=== PATIENT | male | born 1945 | race Caucasian/White ===

== ENCOUNTER 2021-12-19 07:53 | Oncology outpatient (recurring) (ONCR) | payer MEDICARE, SELFPAY ==
[2021-12-19 09:34] LABS: Basophils % 0.5 %; Eosinophils # 0.2 10^3/uL (0.0-0.8); Hematocrit 42.2 % (42.0-52.0); Hemoglobin 14.3 g/dL (11.7-16.6); Lymphocytes # 2.1 10^3/uL (0.8-4.8); Mean Corpuscular HGB Conc 33.9 g/dL (30.0-36.0); Mean Corpuscular Hemoglobin 32.6 pg (28.0-34.0); Mean Corpuscular Volume 96.3 fl (80-94); Mean Platelet Volume 10.6 fL (7.4-10.4); Monocytes % 12.5 %; Neutrophils # 4.28 10^3/uL (1.8-7.7); Nucleated Red Blood Cells % 0 %; Platelet Count 289 10^3/cmm (130-400); Red Blood Count 4.38 10^6/uL (4.1-5.3); Red Cell Distribution Width 14.1 % (12.1-15.1); White Blood Count 7.7 10^3/uL (4.0-10.0)
[2021-12-19 09:51] LABS: Carcinoembryonic Antigen 1.7 ng/mL (0.0-4.7)
[2021-12-19 10:02] LABS: Alanine Aminotransferase 11 U/L (0-41); Albumin Level 4.2 g/dL (3.5-5.2); Alkaline Phosphatase 92 IU/L (40-130); Anion Gap 15.7 (5-19); Aspartate Amino Transferase 16 U/L (0-40); Blood Urea Nitrogen 19 mg/dL (8-23); Calcium 9.4 mg/dL (8.5-10.5); Carbon Dioxide 27 mmol/L (22-29); Chloride 97 mmol/L (98-107); Globulin 2.4 g/dL (1.3-4.6); Glucose 99 mg/dL (65-115); Osmolality Calculated 282 mOsm/kg (285-295); Potassium 4.7 mmol/L (3.5-5.1); Sodium 135 mmol/L (136-145); Total Bilirubin 0.2 mg/dL (0.15-1.2); Total Protein 6.6 g/dL (6.6-8.7)
== END 2021-12-23 23:59 | disposition home or self-care (01) ==
PROVIDERS: PCP Family Medicine; Visit Provider Internal Medicine Medical Oncology
DX: C18.6 Malignant neoplasm of descending colon (principal)
CPT/HCPCS: 80053; 82378; 85025

== ENCOUNTER 2022-07-17 13:29 | Oncology outpatient (recurring) (ONCR) | payer MEDICARE, MEDICAID, SELFPAY ==
[2022-07-17 14:31] LABS: Basophils # 0.1 10^3/uL (0.0-0.1); Basophils % 0.6 %; Eosinophils # 0.4 10^3/uL (0.0-0.8); Eosinophils % 3.6 %; Hematocrit 47.6 % (42.0-52.0); Hemoglobin 15.6 g/dL (11.7-16.6); Lymphocytes # 2.4 10^3/uL (0.8-4.8); Lymphocytes % 23.3 %; Mean Corpuscular HGB Conc 32.8 g/dL (30.0-36.0); Mean Corpuscular Hemoglobin 32.9 pg (28.0-34.0); Mean Corpuscular Volume 100.4 fl (80-94); Mean Platelet Volume 10.8 fL (7.4-10.4); Monocytes # 1.1 10^3/uL (0.2-0.9); Monocytes % 11.1 %; Neutrophils # 6.22 10^3/uL (1.8-7.7); Neutrophils % 60.8 %; Nucleated Red Blood Cells % 0 %; Platelet Count 242 10^3/cmm (130-400); Red Blood Count 4.74 10^6/uL (4.1-5.3); Red Cell Distribution Width 13.3 % (12.1-15.1); White Blood Count 10.2 10^3/uL (4.0-10.0)
[2022-07-17 15:07] LABS: Alanine Aminotransferase 15 U/L (0-41); Albumin Level 4.2 g/dL (3.5-5.2); Alkaline Phosphatase 86 U/L (40-130); Blood Urea Nitrogen 21 mg/dL (8-23); Calcium 9.3 mg/dL (8.5-10.5); Carbon Dioxide 29 mmol/L (22-29); Chloride 101 mmol/L (98-107); Globulin 2.6 g/dL (1.3-4.6); Glucose 98 mg/dL (65-115); Osmolality Calculated 291 mOsm/kg (285-295); Sodium 139 mmol/L (136-145); Total Bilirubin 0.3 mg/dL (0.15-1.2); Total Protein 6.8 g/dL (6.6-8.7)
[2022-07-17 17:20] LABS: Anion Gap 13.8 (5-19); Aspartate Amino Transferase 18 U/L (0-40); Potassium 4.8 mmol/L (3.5-5.1)
== END 2022-07-23 23:59 | disposition home or self-care (01) ==
PROVIDERS: PCP Family Medicine; Visit Provider Internal Medicine Medical Oncology
DX: C18.6 Malignant neoplasm of descending colon (principal); Z90.49 Acquired absence of other specified parts of digestive tract; F17.210 Nicotine dependence, cigarettes, uncomplicated
CPT/HCPCS: 36415; 80053; 82378; 85025; 99214

== ENCOUNTER → 2022-08-07 13:50 | Outpatient (BNVA) | payer MEDICARE, MEDICAID, SELFPAY | PROVIDERS: PCP Family Medicine; Referring Provider Nurse Practitioner Family; Visit Provider Surgery | DX: Z85.038 Personal history of other malignant neoplasm of large intestine (principal) | CPT/HCPCS: 99203 ==

== ENCOUNTER 2022-09-12 08:22 | Day surgery (SDC) | payer MEDICARE, SELFPAY ==
[2022-09-10 11:27] VITALS: BMI 25.0
[2022-09-12 09:00] VITALS: BP 130/80; PULSE 78; RESP 18; TEMP 36.1; O2SAT 98
[2022-09-12] MEDS: sodium chloride 0.9% 1,000 ML 30 ML IV (09:16)
--- NOTE | 2022-09-12 09:48 | ANES.PREANE2 ---
Pre-Anesthetic Assessment Height/Weight: Height 1.83 m Weight 83.915 kg Temp Pulse Resp BP Pulse Ox O2 Del Method 97 F L 78 18 130/80 98 Room Air 09/12/22 09:00 09/12/22 09:00 09/12/22 09:00 09/12/22 09:00 09/12/22 09:00 09/12/22 09:00 Preop Diagnosis: screening Operation Date: 09/12/22 10:00 Proposed Procedures p colon 19315 ,Z12.11,C18.6(Not Applicable) - Stalin Salter DO Familial anesthetic complications: none Was Beta Rajinder taken within 24 hours: Yes Was Clonidine taken within 24 hours: N/A Last intake: Intake Last Liquid Date 09/11/22 Last Liquid Time 20:00 Last Solid Date 09/11/22 Last Solid Time 05:00 Last Intake: 20:00 Social Tobacco and No alcohol 1ppd pack(s) per day 40+ pack years Exam alert, oriented x 3, clear to auscultation bilaterally and regular rate & rhythm Airway Submandibular: within normal limits Cervical ROM: within normal limits Mallampati: Class II Dentition: false (upper, 4 teeth on bottom) Pulmonary Chronic Obstructive Pulmonary Disease, Exertional Dyspnea and Shortness of Breath CV/HEM Coronary Artery Disease, Hypertension and Myocardial Infarction (PTCA 2018. Pt walks 1 mile 2-3 times a week) None reported Hepatic None reported GI None reported Metabolic None reported Musc/skel Lower Back Pain and Osteoarthritis/DJD Neuropsych None reported Anesthetic Plan ASA status: 3 Anesthesia: MAC Medications/Allergies Home Medications Medication Instructions Recorded Confirmed Last Taken Type aspirin 81 mg capsule 81 mg PO DAILY 12/19/21 09/10/22 09/10/22 History clopidogrel 75 mg tablet 75 mg PO DAILY 12/19/21 09/10/22 09/07/22 History diltiazem HCl 240 mg 240 mg PO DAILY 12/19/21 09/12/22 09/12/22 History capsule,extended release 24 hr furosemide 20 mg tablet 20 mg PO DAILY 12/19/21 09/12/22 09/12/22 History lisinopril 10 mg tablet 10 mg PO DAILY 12/19/21 09/12/22 09/12/22 History metoprolol tartrate 25 mg tablet 25 mg PO DAILY 12/19/21 09/12/22 09/12/22 History hydrocortisone 2.5 % topical cream 1 applic GA QID 10 days #30 grams 09/12/22 Unknown Rx with perineal applicator ([facility]) Allergies Allergy/AdvReac Type Severity Reaction Status Date / Time Penicillins Allergy ALGY-Hives Verified 08/07/22 14:18 Sulfa (Sulfonamide Allergy hives Verified 08/07/22 14:18 Antibiotics) Current Medications Generic Name Dose Route Start Last Admin Trade Name Freq PRN Reason Stop Dose Admin Sodium Chloride 1,000 mls @ 30 mls/hr 09/12/22 09:00 09/12/22 09:16 Sodium Chloride 0.9% IV 09/13/22 08:59 30 mls/hr .Q24H MINDY Administration PFSH Anesthesia Medical History Benign prostatic hyperplasia Colon cancer Coronary artery disease Elevated PSA Hyperlipidemia Hypertension Mini stroke Peripheral arterial disease Surgical History History of cholecystectomy History of coronary artery stent placement x 2 History of partial surgical removal of colon (11/06/21) Open left hemicolectomy at [facility] History of tonsillectomy Age 17 S/P arterial stent Left leg Family History Mother Cancer Colon Other CAD (coronary artery disease) Hypertension Denies family history of Diabetes Clotting disorder Dementia Hyperlipidemia Psychiatric illness Chronic kidney disease (CKD) Suicide Anesthesia complication Bleeding disorder Lung disease Stroke Social History Smoking and tobacco status: current every day smoker (1 ppd) Alcohol intake: never Data Anesthesia Cardiac Studies: No Data to Display
--- NOTE | 2022-09-12 10:21 | PM.HP ---
Providers/Chief Complaint Primary Care Provider: Ramonita Batres DO Chief Complaint: History of colon cancer History of Present Illness Cleopatra Bowers is a 76 year old male here for a screening colonoscopy Medications/Allergies Home Medications Medication Instructions Recorded Confirmed Last Taken Type aspirin 81 mg capsule 81 mg PO DAILY 12/19/21 09/10/22 09/10/22 History clopidogrel 75 mg tablet 75 mg PO DAILY 12/19/21 09/10/22 09/07/22 History diltiazem HCl 240 mg 240 mg PO DAILY 12/19/21 09/12/22 09/12/22 History capsule,extended release 24 hr furosemide 20 mg tablet 20 mg PO DAILY 12/19/21 09/12/22 09/12/22 History lisinopril 10 mg tablet 10 mg PO DAILY 12/19/21 09/12/22 09/12/22 History metoprolol tartrate 25 mg tablet 25 mg PO DAILY 12/19/21 09/12/22 09/12/22 History Allergies Allergy/AdvReac Type Severity Reaction Status Date / Time Penicillins Allergy ALGY-Hives Verified 08/07/22 14:18 Sulfa (Sulfonamide Allergy hives Verified 08/07/22 14:18 Antibiotics) PFSH Acute PFSH: Medical History Benign prostatic hyperplasia Colon cancer Coronary artery disease Elevated PSA Hyperlipidemia Hypertension Mini stroke Peripheral arterial disease Surgical History History of cholecystectomy History of coronary artery stent placement x 2 History of partial surgical removal of colon (11/06/21) Open left hemicolectomy at [facility] History of tonsillectomy Age 17 S/P arterial stent Left leg Family History Mother Cancer Colon Other CAD (coronary artery disease) Hypertension Denies family history of Diabetes Clotting disorder Dementia Hyperlipidemia Psychiatric illness Chronic kidney disease (CKD) Suicide Anesthesia complication Bleeding disorder Lung disease Stroke Social History Smoking and tobacco status: current every day smoker (1 ppd) Alcohol intake: never Vitals/I&O/Wt Last Vital Signs Temp 97 F L 09/12/22 09:00 Pulse 78 09/12/22 09:00 Resp 18 09/12/22 09:00 BP 130/80 09/12/22 09:00 Pulse Ox 98 09/12/22 09:00 O2 Del Method Room Air 09/12/22 09:00 Weight last 48 hrs Weight 185 lb A&P Assessment and plan (1) Colon cancer screening: Plan Colonoscopy The risks and benefits of the procedure, including bleeding, infection, intestinal perforation requiring surgery, missed lesion were explained to the patient. The patient is understanding of the risks and wishes to proceed. Attestations Medical Necessity Statement*: Home Coding Level of Care Code Acute Code for Chg Fwd Diagnoses Colon cancer screening Z12.11
[2022-09-12 10:46] VITALS: BP 106/59; PULSE 62; RESP 16; TEMP 36.1; O2SAT 98
[2022-09-12 10:55] VITALS: BP 105/75; PULSE 70; RESP 16; O2SAT 97
[2022-09-12 11:00] VITALS: BP 117/64; PULSE 70; RESP 18; O2SAT 97
--- NOTE | 2022-09-12 14:18 | ANE.PACU2 ---
Inpatient post-anesthesia follow up: Airway intact: Yes Vital signs: Temperature 97.0 F Pulse Rate 70 Respiratory Rate 18 Blood Pressure 117/64 Pulse Oximetry 97 Oxygen Delivery Me thod Room Air Oxygen Flow Rate Fraction of Inspir ed Oxygen Hydration adequate: Yes Nausea and vomiting: No Pain level: 2 Mental status: Baseline
== END 2022-09-12 11:25 | disposition home or self-care (01) ==
PROVIDERS: PCP Family Medicine; Visit Provider Surgery
PROC: 0DJD8ZZ Inspection of Lower Intestinal Tract, Via Natural or Artificial Opening Endoscopic (ICD-10-PCS; CPT 45378; principal; 2022-09-12 10:00)
DX: Z85.038 Personal history of other malignant neoplasm of large intestine (principal); Z86.010 Personal history of colon polyps; K62.1 Rectal polyp; I25.10 Atherosclerotic heart disease of native coronary artery without angina pectoris; E78.5 Hyperlipidemia, unspecified; I10 Essential (primary) hypertension; I73.9 Peripheral vascular disease, unspecified; F17.210 Nicotine dependence, cigarettes, uncomplicated; J44.9 Chronic obstructive pulmonary disease, unspecified; Z79.02 Long term (current) use of antithrombotics/antiplatelets; Z12.11 Encounter for screening for malignant neoplasm of colon; D12.7 Benign neoplasm of rectosigmoid junction; D12.0 Benign neoplasm of cecum; Z79.82 Long term (current) use of aspirin
CPT/HCPCS: 45385; 88305; J2704; J7030

== ENCOUNTER → 2022-09-26 15:49 | Outpatient (BNVA) | payer MEDICARE, SELFPAY | PROVIDERS: PCP Family Medicine; Visit Provider Surgery | DX: D12.6 Benign neoplasm of colon, unspecified (principal) | CPT/HCPCS: 99024; 99212 ==

== ENCOUNTER → 2022-09-30 13:33 | Outpatient (BNVA) | payer MEDICARE, SELFPAY | PROVIDERS: PCP Family Medicine; Referring Provider Nurse Practitioner Family; Visit Provider Dermatology | DX: L57.0 Actinic keratosis (principal); Z85.828 Personal history of other malignant neoplasm of skin; L82.1 Other seborrheic keratosis; L81.4 Other melanin hyperpigmentation; L57.8 Other skin changes due to chronic exposure to nonionizing radiation | CPT/HCPCS: 17000; 17003; 99203 ==

== ENCOUNTER 2023-01-16 12:36 | Oncology outpatient (recurring) (ONCR) | payer MEDICARE, SELFPAY ==
[2023-01-16 12:44] VITALS: BP 114/70; PULSE 66; RESP 18; TEMP 37; O2SAT 96
[2023-01-16 13:00] LABS: Basophils # 0.1 10^3/uL (0.0-0.1); Basophils % 0.6 %; Eosinophils # 0.3 10^3/uL (0.0-0.8); Eosinophils % 3.4 %; Hematocrit 44.4 % (37-53); Lymphocytes # 2.3 10^3/uL (0.8-4.8); Lymphocytes % 24.7 %; Mean Corpuscular HGB Conc 33.3 g/dL (30-55); Mean Corpuscular Hemoglobin 32.5 pg (27-33); Mean Corpuscular Volume 97.4 fl (82-101); Mean Platelet Volume 10.5 fL (7.4-10.4); Monocytes # 1.1 10^3/uL (0.2-0.9); Monocytes % 11.7 %; Neutrophils # 5.49 10^3/uL (1.8-7.7); Neutrophils % 58.7 %; Nucleated Red Blood Cells % 0 %; Platelet Count 251 10^3/cmm (157-399); Red Blood Count 4.56 10^6/uL (3.85-5.65); Red Cell Distribution Width 13.1 % (12.1-15.1); White Blood Count 9.35 10^3/uL (3.29-11.43)
[2023-01-16 13:25] LABS: Carcinoembryonic Antigen 1.6 ng/mL (0.0-4.7)
[2023-01-16 13:36] LABS: Alanine Aminotransferase 17 U/L (0-41); Albumin Level 4.5 g/dL (3.5-5.2); Alkaline Phosphatase 74 U/L (40-130); Anion Gap 12.4 (5-19); Aspartate Amino Transferase 16 U/L (0-40); Blood Urea Nitrogen 15 mg/dL (8-23); Calcium 9.3 mg/dL (8.5-10.5); Carbon Dioxide 30 mmol/L (22-29); Chloride 98 mmol/L (98-107); Globulin 2.2 g/dL (1.3-4.6); Glucose 103 mg/dL (65-115); Osmolality Calculated 283 mOsm/kg (285-295); Potassium 4.4 mmol/L (3.5-5.1); Sodium 136 mmol/L (136-145); Total Bilirubin 0.3 mg/dL (0.15-1.2); Total Protein 6.7 g/dL (6.6-8.7)
== END 2023-01-23 23:59 | disposition home or self-care (01) ==
PROVIDERS: Nurse Practitioner Family; PCP Family Medicine; Visit Provider Internal Medicine Medical Oncology
DX: C18.6 Malignant neoplasm of descending colon (principal); Z79.899 Other long term (current) drug therapy
CPT/HCPCS: 36415; 80053; 82378; 85025; 99214

== ENCOUNTER → 2023-02-03 13:28 | Outpatient (BNVA) | payer MEDICARE, SELFPAY | PROVIDERS: PCP Family Medicine; Visit Provider Dermatology | DX: L57.0 Actinic keratosis (principal); Z85.828 Personal history of other malignant neoplasm of skin; L82.1 Other seborrheic keratosis; L81.4 Other melanin hyperpigmentation; D18.01 Hemangioma of skin and subcutaneous tissue; L57.8 Other skin changes due to chronic exposure to nonionizing radiation; D48.5 Neoplasm of uncertain behavior of skin; F17.210 Nicotine dependence, cigarettes, uncomplicated | CPT/HCPCS: 11102; 17000; 17003; 99213 ==

== ENCOUNTER → 2023-02-27 08:03 | Outpatient (BNVA) | payer MEDICARE, SELFPAY | PROVIDERS: PCP Family Medicine; Visit Provider Dermatology | DX: C44.311 Basal cell carcinoma of skin of nose (principal) | CPT/HCPCS: 17311 ==

== ENCOUNTER 2023-03-03 08:33 | Outpatient (CLI) | payer MEDICARE, SELFPAY ==
[2023-03-03] MEDS: iohexol 350 mg/mL 500 mL Btl (per mL) PO (09:18)
--- NOTE | 2023-03-03 10:00 | CT_ITS ---
WS: [id number] CT CHEST, ABDOMEN AND PELVIS WITH CONTRAST HISTORY: History of colon cancer s/p hemicolectomy TECHNIQUE: Contiguous 5 mm axial imaging performed through the chest, abdomen and pelvis with IV cont rast, oral contrast has been provided. Coronal and sagittal reformats chest. Coronal and sagittal ref ormats through the abdomen and pelvis. All CT scans at [facility] use at least one of these d ose optimization techniques: automated exposure control; mA and/or kV adjustment per patient size (in cludes targeted exams where dose is matched to clinical indication); or iterative reconstruction. CONTRAST: Omnipaque 350; 100 mL IV. DLP: 986.28 mGy.cm COMPARISON: 11/01/[address]: Benign scattered granulomata. No mass or nodule. No pneumonia. Mild atherosclerosis thoraci c aorta. No aneurysm. Normal sized pulmonary artery. Mediastinal and hilar lymph nodes are similar to the prior study. Some of these lymph nodes contain calcifications. There are no enlarging lymph node s. Heart is normal size. No pericardial or pleural effusions. Abdomen CT: Diffuse mild hepatic steatosis. No metastatic lesions in the liver. Normal portal vein. P rior cholecystectomy. Normal size spleen with granulomata. Normal pancreas. No common bile duct dilat ation. No adrenal mass. Mild atherosclerosis aorta. Calcified plaque and intimal thickening. Heavy ca lcification continues into the iliac arteries. Normal appearance of the stomach. No small bowel obstruction. Tortuous overlapping loops of colon fro m chronic constipation. Prior appendectomy. Sigmoid anastomotic sutures are stable. No recurrent mass and no obstruction. No enlarging or new lymph nodes. Pelvic CT: No free fluid or adenopathy. Prostate gland is enlarged and heterogeneous. Prostate encroa ches into the urinary bladder. Inguinal canals are patent bilaterally containing fat. Increased soft tissue in the RIGHT inguinal canal. May be a small amount of fluid or the testicle. No destructive lytic bone lesions. No sclerotic lesions. Degenerative disc disease at L2-3. Stable sc lerotic focus in the medial LEFT femoral neck. IMPRESSION: 1. No evidence for metastatic disease to the chest, abdomen or pelvis. 2. Sigmoid anastomotic sutures are identified. No mass or obstruction at the surgical site. 3. No ascites or enlarging lymph nodes. 4. Prior cholecystectomy. 5. Enlarged heterogeneous prostate.
[2023-03-03] MEDS: iohexol 350 mg/mL 500 mL Btl (per mL) IV (10:05)
== END 2023-03-03 08:34 | disposition home or self-care (01) ==
PROVIDERS: PCP Family Medicine; Visit Provider Nurse Practitioner Family
DX: C18.6 Malignant neoplasm of descending colon (principal)
CPT/HCPCS: 71260; 74177; Q9967

== ENCOUNTER → 2023-03-06 08:42 | Outpatient (BNVA) | payer MEDICARE, SELFPAY | PROVIDERS: PCP Family Medicine; Visit Provider Dermatology | DX: C44.311 Basal cell carcinoma of skin of nose (principal) | CPT/HCPCS: 99213 ==

== ENCOUNTER 2023-03-19 06:44 | Day surgery (SDC) | payer MEDICARE, SELFPAY ==
[2023-03-19 07:17] VITALS: BP 122/80; PULSE 98; RESP 18; TEMP 36.8; O2SAT 96; BMI 25.7
[2023-03-19] MEDS: sodium chloride 0.9% 1,000 ML 30 ML IV (07:22)
--- NOTE | 2023-03-19 07:59 | ANES.PREANE2 ---
Pre-Anesthetic Assessment Height/Weight: Height 1.83 m Weight 86.183 kg Temp Pulse Resp BP Pulse Ox O2 Del Method 98.3 F 98 18 122/80 96 Room Air 03/19/23 07:17 03/19/23 07:17 03/19/23 07:17 03/19/23 07:17 03/19/23 07:17 03/19/23 07:17 Preop Diagnosis: history of colon polyps Operation Date: 03/19/23 08:15 Proposed Procedures p Colonoscopy 85512,C18.6,D12.6(Not Applicable) - Stalin Salter DO Familial anesthetic complications: none Was Beta Rajinder taken within 24 hours: Yes Was Clonidine taken within 24 hours: N/A Last intake: Intake Last Liquid Date 03/18/23 Last Liquid Time 20:00 Last Solid Date 03/18/23 Last Solid Time 05:00 Social Tobacco 1 pack(s) per day 43 pack years Exam alert, oriented x 3, clear to auscultation bilaterally and regular rate & rhythm Airway Submandibular: within normal limits Cervical ROM: within normal limits Mallampati: Class II Dentition: chipped and other Comments: Comments: 4 teeth on bottom none on top Pulmonary Chronic Obstructive Pulmonary Disease and Exertional Dyspnea CV/HEM Coronary Artery Disease, Hypertension and Myocardial Infarction blood clots stents None reported Hepatic None reported GI None reported Metabolic Hyperlipidemia Musc/skel Osteoarthritis/DJD Neuropsych Transient Ischemic Attack Anesthetic Plan ASA status: 3 Anesthesia: MAC Risk of > 500 ml blood loss (7ml/kg in children): No Medications/Allergies Home Medications Medication Instructions Recorded Confirmed Last Taken Type aspirin 81 mg capsule 81 mg PO DAILY 12/19/21 03/17/23 03/14/23 History clopidogrel 75 mg tablet 75 mg PO DAILY 12/19/21 03/17/23 03/14/23 History diltiazem HCl 240 mg 240 mg PO DAILY 12/19/21 03/17/23 03/19/23 History capsule,extended release 24 hr furosemide 20 mg tablet 20 mg PO DAILY 12/19/21 03/17/23 03/18/23 History lisinopril 10 mg tablet 10 mg PO DAILY 12/19/21 03/17/23 03/18/23 History metoprolol tartrate 25 mg tablet 25 mg PO DAILY 12/19/21 03/17/23 03/19/23 History Prevagen 1 cap PO DAILY 01/16/23 03/17/23 03/18/23 History ascorbate calcium (vitamin C) 500 500 mg PO DAILY 01/16/23 03/17/23 03/18/23 History mg tablet albuterol sulfate 90 mcg/actuation 2 puff inhalation QID PRN 03/17/23 03/17/23 03/16/23 History aerosol inhaler Shortness Of Breath Or Wheezing mupirocin 2 % topical ointment 1 applic topical BID 03/17/23 03/17/23 03/18/23 History Allergies Allergy/AdvReac Type Severity Reaction Status Date / Time Penicillins Allergy ALGY-Hives Verified 02/11/23 11:29 Sulfa (Sulfonamide Allergy hives Verified 02/11/23 11:29 Antibiotics) Current Medications Generic Name Dose Route Start Last Admin Trade Name Freq PRN Reason Stop Dose Admin Sodium Chloride 1,000 mls @ 30 mls/hr 03/19/23 07:00 03/19/23 07:22 Sodium Chloride 0.9% IV 03/20/23 06:59 30 mls/hr .Q24H MINDY Administration PFSH Anesthesia Medical History Benign prostatic hyperplasia Colon cancer Coronary artery disease Elevated PSA Hyperlipidemia Hypertension Mini stroke Peripheral arterial disease Surgical History History of cholecystectomy History of coronary artery stent placement x 2 History of partial surgical removal of colon (11/06/21) Open left hemicolectomy at [facility] History of tonsillectomy Age 17 S/P arterial stent Left leg Family History Mother Cancer Colon Other CAD (coronary artery disease) Hypertension Denies family history of Diabetes Clotting disorder Dementia Hyperlipidemia Psychiatric illness Chronic kidney disease (CKD) Suicide Anesthesia complication Bleeding disorder Lung disease Stroke Social History (System 02/11/23 @ 11:29 by Nargis Alba) Smoking and tobacco/nicotine status: current every day tobacco/nicotine user (1 ppd) cigarettes Packs smoked per day: 0.75 Years cigarettes smoked: 43 Alcohol intake: never Data Anesthesia Cardiac Studies: No Data to Display
--- NOTE | 2023-03-19 08:23 | ECG_ITS ---
[facility] Test Date: 2023-03-19 Pat Name: Cleopatra Bowers Department: Room: Gender: Male [employer]: : 1945 Requested By: Amauri Lai Order Number: [id number] Isaias MD: Aditya Devries M.D. Measurements Intervals [place] Rate: 84 P: 71 MI: 149 QRS: 32 QRSD: 75 T: 65 QT: 348 QTc: 414 Interpretive Statements SINUS RHYTHM Compared to ECG 04/13/2018 20:11:45 Myocardial infarct finding no longer present Electronically Signed On 03-19-2023 8:43:55 CDT by Aditya Devries M.D. [id number]
--- NOTE | 2023-03-19 08:26 | PM.HP ---
Providers/Chief Complaint Primary Care Provider: Ramonita Batres DO Chief Complaint: C18.6, D12.6 History of Present Illness Cleopatra Bowers is a 77 year old male Review of Systems General: Reports: 10 or more systems reviewed and unremarkable except in HPI and below Medications/Allergies Home Medications Medication Instructions Recorded Confirmed Last Taken Type aspirin 81 mg capsule 81 mg PO DAILY 12/19/21 03/17/23 03/14/23 History clopidogrel 75 mg tablet 75 mg PO DAILY 12/19/21 03/17/23 03/14/23 History diltiazem HCl 240 mg 240 mg PO DAILY 12/19/21 03/17/23 03/19/23 History capsule,extended release 24 hr furosemide 20 mg tablet 20 mg PO DAILY 12/19/21 03/17/23 03/18/23 History lisinopril 10 mg tablet 10 mg PO DAILY 12/19/21 03/17/23 03/18/23 History metoprolol tartrate 25 mg tablet 25 mg PO DAILY 12/19/21 03/17/23 03/19/23 History Prevagen 1 cap PO DAILY 01/16/23 03/17/23 03/18/23 History ascorbate calcium (vitamin C) 500 500 mg PO DAILY 01/16/23 03/17/23 03/18/23 History mg tablet albuterol sulfate 90 mcg/actuation 2 puff inhalation QID PRN 03/17/23 03/17/23 03/16/23 History aerosol inhaler Shortness Of Breath Or Wheezing mupirocin 2 % topical ointment 1 applic topical BID 03/17/23 03/17/23 03/18/23 History Allergies Allergy/AdvReac Type Severity Reaction Status Date / Time Penicillins Allergy ALGY-Hives Verified 02/11/23 11:29 Sulfa (Sulfonamide Allergy hives Verified 02/11/23 11:29 Antibiotics) PFSH Acute PFSH: Medical History Benign prostatic hyperplasia Colon cancer Coronary artery disease Elevated PSA Hyperlipidemia Hypertension Mini stroke Peripheral arterial disease Surgical History History of cholecystectomy History of coronary artery stent placement x 2 History of partial surgical removal of colon (11/06/21) Open left hemicolectomy at [facility] History of tonsillectomy Age 17 S/P arterial stent Left leg Family History Mother Cancer Colon Other CAD (coronary artery disease) Hypertension Denies family history of Diabetes Clotting disorder Dementia Hyperlipidemia Psychiatric illness Chronic kidney disease (CKD) Suicide Anesthesia complication Bleeding disorder Lung disease Stroke Social History Smoking and tobacco/nicotine status: current every day tobacco/nicotine user (1 ppd) cigarettes Packs smoked per day: 0.75 Years cigarettes smoked: 43 Alcohol intake: never Vitals/I&O/Wt Last Vital Signs Temp 98.3 F 03/19/23 07:17 Pulse 98 03/19/23 07:17 Resp 18 03/19/23 07:17 BP 122/80 03/19/23 07:17 Pulse Ox 96 03/19/23 07:17 O2 Del Method Room Air 03/19/23 07:17 Weight last 48 hrs Weight 190 lb A&P Assessment and plan (1) Tubulovillous adenoma of colon: Plan colonoscopy The risks and benefits of the procedure, including bleeding, infection, intestinal perforation requiring surgery, missed lesion were explained to the patient. The patient is understanding of the risks and wishes to proceed. Attestations Medical Necessity Statement*: Home Coding Level of Care Code Acute Code for Chg Fwd Diagnoses Tubulovillous adenoma of colon D12.6
[2023-03-19 08:57] VITALS: BP 91/51; PULSE 75; RESP 12; TEMP 36.2; O2SAT 98
[2023-03-19 09:07] VITALS: BP 97/49; PULSE 80; RESP 16; O2SAT 97
[2023-03-19 09:17] VITALS: BP 109/70; PULSE 78; RESP 16; O2SAT 97
--- NOTE | 2023-03-19 13:29 | ANE.PACU2 ---
Inpatient post-anesthesia follow up: Airway intact: Yes Vital signs: Temperature 97.2 F Pulse Rate 78 Respiratory Rate 16 Blood Pressure 109/70 Pulse Oximetry 97 Oxygen Delivery Me thod Room Air Oxygen Flow Rate 2 Fraction of Inspir ed Oxygen Hydration adequate: Yes Nausea and vomiting: No Pain level: 2 Mental status: Baseline
== END 2023-03-19 09:37 | disposition home or self-care (01) ==
PROVIDERS: PCP Family Medicine; Visit Provider Surgery
PROC: 0DJD8ZZ Inspection of Lower Intestinal Tract, Via Natural or Artificial Opening Endoscopic (ICD-10-PCS; CPT 45378; principal; 2023-03-19 08:15)
DX: C18.6 Malignant neoplasm of descending colon (principal); K64.8 Other hemorrhoids; D12.5 Benign neoplasm of sigmoid colon; Z79.82 Long term (current) use of aspirin; N40.0 Benign prostatic hyperplasia without lower urinary tract symptoms; E78.5 Hyperlipidemia, unspecified; I25.10 Atherosclerotic heart disease of native coronary artery without angina pectoris; I10 Essential (primary) hypertension; Z95.5 Presence of coronary angioplasty implant and graft; F17.210 Nicotine dependence, cigarettes, uncomplicated; I25.2 Old myocardial infarction; J44.9 Chronic obstructive pulmonary disease, unspecified
CPT/HCPCS: 45380; 45385; 88305; 93005; J2704; J7030

== ENCOUNTER → 2023-03-20 10:40 | Outpatient (BNVA) | payer MEDICARE, SELFPAY | PROVIDERS: PCP Family Medicine; Visit Provider Dermatology | DX: Z48.817 Encounter for surgical aftercare following surgery on the skin and subcutaneous tissue (principal); Z85.828 Personal history of other malignant neoplasm of skin; L57.8 Other skin changes due to chronic exposure to nonionizing radiation; L73.8 Other specified follicular disorders | CPT/HCPCS: 99213 ==

== ENCOUNTER → 2023-04-01 10:56 | Outpatient (BNVA) | payer MEDICARE, SELFPAY | PROVIDERS: PCP Family Medicine; Visit Provider Surgery | DX: Z09 Encounter for follow-up examination after completed treatment for conditions other than malignant neoplasm (principal) | CPT/HCPCS: 99213 ==

== ENCOUNTER 2023-05-01 12:38 | Oncology outpatient (recurring) (ONCR) | payer MEDICARE, MEDICAID, SELFPAY ==
[2023-05-01 13:20] VITALS: BP 94/52; PULSE 65; RESP 16; TEMP 36.6; O2SAT 96
[2023-05-01 13:29] LABS: Basophils # 0.1 10^3/uL (0.0-0.1); Basophils % 0.6 %; Eosinophils # 0.3 10^3/uL (0.0-0.8); Eosinophils % 3.7 %; Hematocrit 45.2 % (37-53); Lymphocytes # 1.9 10^3/uL (0.8-4.8); Lymphocytes % 21.1 %; Mean Corpuscular Hemoglobin 32.5 pg (27-33); Mean Corpuscular Volume 98.5 fl (82-101); Mean Platelet Volume 10.5 fL (7.4-10.4); Monocytes # 0.8 10^3/uL (0.2-0.9); Neutrophils # 5.81 10^3/uL (1.8-7.7); Nucleated Red Blood Cells % 0 %; Platelet Count 236 10^3/cmm (157-399); Red Blood Count 4.59 10^6/uL (3.85-5.65); Red Cell Distribution Width 13.2 % (12.1-15.1); White Blood Count 8.92 10^3/uL (3.29-11.43)
[2023-05-01 13:52] LABS: Carcinoembryonic Antigen 1.6 ng/mL (0.0-4.7)
[2023-05-01 14:03] LABS: Alanine Aminotransferase 25 U/L (0-41); Albumin Level 4.1 g/dL (3.5-5.2); Alkaline Phosphatase 74 U/L (40-130); Anion Gap 13.1 (5-19); Aspartate Amino Transferase 19 U/L (0-40); Blood Urea Nitrogen 16 mg/dL (8-23); Calcium 9.4 mg/dL (8.5-10.5); Carbon Dioxide 31 mmol/L (22-29); Chloride 99 mmol/L (98-107); Globulin 2.5 g/dL (1.3-4.6); Glucose 115 mg/dL (65-115); Osmolality Calculated 290 mOsm/kg (285-295); Potassium 4.1 mmol/L (3.5-5.1); Sodium 139 mmol/L (136-145); Total Bilirubin 0.2 mg/dL (0.15-1.2); Total Protein 6.6 g/dL (6.6-8.7)
== END 2023-05-25 23:59 | disposition home or self-care (01) ==
PROVIDERS: Nurse Practitioner Family; PCP Family Medicine; Visit Provider Internal Medicine Medical Oncology
DX: C18.6 Malignant neoplasm of descending colon (principal); Z79.899 Other long term (current) drug therapy
CPT/HCPCS: 36415; 80053; 82378; 85025; 99214

== ENCOUNTER 2023-07-31 12:32 | Oncology outpatient (recurring) (ONCR) | payer MEDICARE, MEDICAID, SELFPAY ==
[2023-07-31 13:36] LABS: Basophils # 0.1 10^3/uL (0.0-0.1); Basophils % 0.6 %; Eosinophils # 0.3 10^3/uL (0.0-0.8); Eosinophils % 2.9 %; Hematocrit 46.2 % (37-53); Lymphocytes # 1.8 10^3/uL (0.8-4.8); Lymphocytes % 18.3 %; Mean Corpuscular HGB Conc 33.8 g/dL (30-55); Mean Corpuscular Hemoglobin 32.9 pg (27-33); Mean Corpuscular Volume 97.5 fl (82-101); Mean Platelet Volume 10.4 fL (7.4-10.4); Monocytes % 10.4 %; Neutrophils # 6.51 10^3/uL (1.8-7.7); Neutrophils % 66.9 %; Nucleated Red Blood Cells % 0 %; Platelet Count 242 10^3/cmm (157-399); Red Blood Count 4.74 10^6/uL (3.85-5.65); Red Cell Distribution Width 13.4 % (12.1-15.1); White Blood Count 9.73 10^3/uL (3.29-11.43)
[2023-07-31 14:10] LABS: Carcinoembryonic Antigen 1.8 ng/mL (0.0-4.7)
[2023-07-31 14:23] LABS: Alanine Aminotransferase 26 U/L (0-41); Albumin Level 4.2 g/dL (3.5-5.2); Alkaline Phosphatase 90 U/L (40-130); Blood Urea Nitrogen 20 mg/dL (8-23); Calcium 8.9 mg/dL (8.5-10.5); Carbon Dioxide 29 mmol/L (22-29); Chloride 97 mmol/L (98-107); Creatinine Clr Calc Pharmacy 67.4723; Globulin 2.9 g/dL (1.3-4.6); Glucose 97 mg/dL (65-115); Osmolality Calculated 289 mOsm/kg (285-295); Sodium 138 mmol/L (136-145); Total Bilirubin 0.2 mg/dL (0.15-1.2); Total Protein 7.1 g/dL (6.6-8.7)
[2023-07-31 14:26] LABS: Anion Gap 17.1 (5-19); Aspartate Amino Transferase 19 U/L (0-40); Potassium 5.1 mmol/L (3.5-5.1)
== END 2023-08-24 23:59 | disposition home or self-care (01) ==
PROVIDERS: Nurse Practitioner Family; PCP Family Medicine; Visit Provider Internal Medicine Medical Oncology
DX: Z79.899 Other long term (current) drug therapy; Z08 Encounter for follow-up examination after completed treatment for malignant neoplasm; Z85.038 Personal history of other malignant neoplasm of large intestine; Z90.49 Acquired absence of other specified parts of digestive tract
CPT/HCPCS: 36415; 80053; 82378; 85025; 99213

== ENCOUNTER 2024-01-02 10:39 | Outpatient (CLI) | payer MEDICARE, MEDICAID, SELFPAY ==
[2024-01-02] MEDS: iohexol 350 mg/mL 500 mL Btl (per mL) IV (11:51)
[2024-01-02] MEDS: iohexol 350 mg/mL 500 mL Btl (per mL) PO (12:00)
--- NOTE | 2024-01-02 12:00 | CTR_ITS ---
PROCEDURE INFORMATION: Exam: CT Chest With Contrast; Diagnostic Exam date and time: 01/02/2024 11:45 AM Age: 78 years old Clinical indication: Condition or disease; Prior surgery; Surgery date: 6+ months; Surgery type: 1/2 colectomy, heart stents; Patient HX: Colon cancer 2 year f/u; Additional info: Surveillance TECHNIQUE: Imaging protocol: Diagnostic computed tomography of the chest with contrast. Radiation optimization: All CT scans at this facility use at least one of these dose optimization techniques: automated exposure control; mA and/or kV adjustment per patient size (includes targeted exams where dose is matched to clinical indication); or iterative reconstruction. Contrast material: OMNI 350; Contrast volume: 100 ml; Contrast route: INTRAVENOUS (IV); COMPARISON: CT chest abdpel w/*[id number] 03/03/2023 9:58 AM RADIATION DOSE METRICS: Total DLP (mGy-cm): 1041.1 FINDINGS: Lungs: There are scattered calcified granulomas. No discrete noncalcified nodules or consolidating infiltrates are noted. Pleural spaces: Unremarkable. No pneumothorax. No pleural effusion. Heart: Unremarkable. No cardiomegaly. No pericardial effusion. Lymph nodes: There are calcified mediastinal and hilar lymph nodes. No pathologically enlarged lymph nodes are seen. Vasculature: Unremarkable. No aortic aneurysm. Bones/joints: There are mild degenerative changes of the thoracic spine. No acute fractures are identified Soft tissues: Unremarkable. PROCEDURE INFORMATION: Exam: CT Abdomen And Pelvis With Contrast Exam date and time: 01/02/2024 11:45 AM Age: 78 years old Clinical indication: Condition or disease; Prior surgery; Surgery date: 6+ months; Surgery type: 1/2 colectomy, heart stents; Patient HX: Colon cancer 2 year f/u; Additional info: Surveillance TECHNIQUE: Imaging protocol: Computed tomography of the abdomen and pelvis with contrast. Radiation optimization: All CT scans at this facility use at least one of these dose optimization techniques: automated exposure control; mA and/or kV adjustment per patient size (includes targeted exams where dose is matched to clinical indication); or iterative reconstruction. Contrast material: OMNI 350; Contrast volume: 100 ml; Contrast route: INTRAVENOUS (IV); COMPARISON: CT chest abdpel w/*[id number] 03/03/2023 9:58 AM RADIATION DOSE METRICS: Total DLP (mGy-cm): 1041.1 FINDINGS: Liver: No focal hepatic lesions are noted. Gallbladder and biliary ducts: There are postsurgical changes of cholecystectomy. There is no significant biliary ductal dilatation. Pancreas: Normal. No ductal dilation. Spleen: There are multiple calcified splenic granulomas. Adrenal glands: Normal. No mass. Kidneys and ureters: There is a simple left upper pole renal cyst. Stomach and bowel: There are postsurgical changes of the sigmoid colon without evidence of discrete mass. There is no evidence of bowel obstruction. Moderate retained fecal material is noted within the colon. Appendix: No evidence of appendicitis. Intraperitoneal space: Unremarkable. No free air. No significant fluid collection. Vasculature: There is moderate diffuse atherosclerotic plaque noted. There is no evidence of abdominal aortic aneurysm. A stent is noted within the left common iliac artery. Lymph nodes: Unremarkable. No enlarged lymph nodes. Urinary bladder: There is mild diffuse bladder wall thickening however the bladder is incompletely distended. Reproductive: There is heterogeneous nodular enlargement of the prostate gland again noted. Bones/joints: There is left convexity lumbar scoliosis with moderate degenerative changes of the lumbar spine, greatest along the concave margin of the scoliotic curvature at L2-L3. There is a stable focal sclerotic lesion within the inferior aspect of the left femoral head, suspicious for a bone island. Soft tissues: Unremarkable. CT/CT chest abdpel w/*[id number] IMPRESSION: 1. No evidence of thoracic metastatic disease or acute abnormality. 2. Calcified mediastinal and hilar lymph nodes and parenchymal granulomas suggesting sequelae of remote granulomatous infection. IMPRESSION: 1. No evidence of abdominal or pelvic metastatic disease. 2. Stable heterogeneous enlargement of the prostate gland. 3. Mild diffuse bladder wall thickening which may in part be owing to incomplete distension and/or reflecting sequelae of chronic bladder outlet obstruction. COMMENTS: Consistent with the [employer]'s Incidental Findings Committee white paper (J Am Demi Radiol 2018): Any incidental renal lesion less than 1 cm or classified as too small to characterize, or any incidental cystic renal lesion characterized as simple-appearing, is likely benign. No follow-up imaging is recommended for these lesions per consensus recommendations based on imaging criteria.
== END 2024-01-02 10:40 | disposition home or self-care (01) ==
LOC: RAD 10:41
PROVIDERS: PCP Family Medicine; Visit Provider Internal Medicine Medical Oncology
DX: C18.6 Malignant neoplasm of descending colon (principal); R59.0 Localized enlarged lymph nodes; Z90.49 Acquired absence of other specified parts of digestive tract; D73.89 Other diseases of spleen; N40.0 Benign prostatic hyperplasia without lower urinary tract symptoms; N28.1 Cyst of kidney, acquired; M51.36 Other intervertebral disc degeneration, lumbar region; Z95.5 Presence of coronary angioplasty implant and graft
CPT/HCPCS: 71260; 74177; Q9967

== ENCOUNTER 2024-01-29 11:04 | Oncology outpatient (recurring) (ONCR) | payer MEDICARE, MEDICAID, SELFPAY ==
[2024-01-29 11:59] LABS: Basophils # 0.1 10^3/uL (0.0-0.1); Basophils % 0.5 %; Eosinophils # 0.3 10^3/uL (0.0-0.8); Eosinophils % 3.4 %; Hematocrit 45.2 % (37-53); Lymphocytes # 1.9 10^3/uL (0.8-4.8); Lymphocytes % 20.1 %; Mean Corpuscular HGB Conc 34.1 g/dL (30-55); Mean Platelet Volume 10.2 fL (7.4-10.4); Monocytes % 10.3 %; Neutrophils # 6.18 10^3/uL (1.8-7.7); Neutrophils % 64.2 %; Nucleated Red Blood Cells % 0 %; Platelet Count 211 10^3/cmm (157-399); Red Blood Count 4.66 10^6/uL (3.85-5.65); Red Cell Distribution Width 13.2 % (12.1-15.1); White Blood Count 9.62 10^3/uL (3.29-11.43)
[2024-01-29 12:23] LABS: Carcinoembryonic Antigen 2.2 ng/mL (0.0-4.7)
[2024-01-29 12:34] LABS: Alanine Aminotransferase 32 U/L (0-41); Albumin Level 4.4 g/dL (3.5-5.2); Alkaline Phosphatase 79 U/L (40-130); Anion Gap 16.9 (5-19); Aspartate Amino Transferase 23 U/L (0-40); Blood Urea Nitrogen 26 mg/dL (8-23); Calcium 8.7 mg/dL (8.5-10.5); Carbon Dioxide 26 mmol/L (22-29); Chloride 98 mmol/L (98-107); Globulin 2.5 g/dL (1.3-4.6); Glucose 114 mg/dL (65-115); Osmolality Calculated 288 mOsm/kg (285-295); Potassium 4.9 mmol/L (3.5-5.1); Sodium 136 mmol/L (136-145); Total Bilirubin 0.4 mg/dL (0.15-1.2); Total Protein 6.9 g/dL (6.6-8.7)
== END 2024-02-23 23:59 | disposition home or self-care (01) ==
PROVIDERS: PCP Family Medicine; Visit Provider Internal Medicine Medical Oncology
DX: C18.6 Malignant neoplasm of descending colon (principal); Z79.899 Other long term (current) drug therapy
CPT/HCPCS: 36415; 80053; 82378; 85025; 99213

== ENCOUNTER → 2024-03-09 13:46 | Outpatient (BNVA) | payer MEDICARE, MEDICAID, SELFPAY | PROVIDERS: PCP Family Medicine; Visit Provider Nurse Practitioner Family | DX: L57.0 Actinic keratosis (principal); L82.0 Inflamed seborrheic keratosis; L23.9 Allergic contact dermatitis, unspecified cause; L21.8 Other seborrheic dermatitis; L81.4 Other melanin hyperpigmentation; L82.1 Other seborrheic keratosis; L57.8 Other skin changes due to chronic exposure to nonionizing radiation; Z85.828 Personal history of other malignant neoplasm of skin | CPT/HCPCS: 17000; 17110; 99214 ==

== ENCOUNTER 2024-07-28 10:45 | Oncology outpatient (recurring) (ONCR) | payer MEDICARE, MEDICAID, SELFPAY ==
[2024-07-28 11:06] LABS: Basophils # 0.1 10^3/uL (0.0-0.1); Basophils % 0.6 %; Eosinophils # 0.4 10^3/uL (0.0-0.8); Eosinophils % 3.4 %; Hematocrit 46.6 % (37-53); Lymphocytes # 2.3 10^3/uL (0.8-4.8); Lymphocytes % 19.6 %; Mean Corpuscular HGB Conc 33.3 g/dL (30-55); Mean Corpuscular Hemoglobin 33.5 pg (27-33); Mean Corpuscular Volume 100.6 fl (82-101); Mean Platelet Volume 10.6 fL (7.4-10.4); Monocytes # 1.2 10^3/uL (0.2-0.9); Monocytes % 10.6 %; Neutrophils # 7.45 10^3/uL (1.8-7.7); Neutrophils % 64.4 %; Nucleated Red Blood Cells % 0 %; Platelet Count 229 10^3/cmm (157-399); Red Blood Count 4.63 10^6/uL (3.85-5.65); Red Cell Distribution Width 14.2 % (12.1-15.1); White Blood Count 11.55 10^3/uL (3.29-11.43)
[2024-07-28 11:34] LABS: Carcinoembryonic Antigen 2.1 ng/mL (0.0-4.7)
[2024-07-28 11:45] LABS: Alanine Aminotransferase 66 U/L (0-41); Albumin Level 4.1 g/dL (3.5-5.2); Alkaline Phosphatase 75 U/L (40-130); Anion Gap 16.2 (5-19); Aspartate Amino Transferase 37 U/L (0-40); Blood Urea Nitrogen 20 mg/dL (8-23); Calcium 8.7 mg/dL (8.5-10.5); Carbon Dioxide 24 mmol/L (22-29); Chloride 102 mmol/L (98-107); Globulin 2.7 g/dL (1.3-4.6); Glucose 108 mg/dL (65-115); Osmolality Calculated 289 mOsm/kg (285-295); Potassium 4.2 mmol/L (3.5-5.1); Sodium 138 mmol/L (136-145); Total Bilirubin 0.4 mg/dL (0.15-1.2); Total Protein 6.8 g/dL (6.6-8.7)
== END 2024-08-23 23:59 | disposition home or self-care (01) ==
PROVIDERS: Nurse Practitioner Family; PCP Family Medicine; Visit Provider Internal Medicine
DX: Z08 Encounter for follow-up examination after completed treatment for malignant neoplasm (principal); Z85.038 Personal history of other malignant neoplasm of large intestine; F17.210 Nicotine dependence, cigarettes, uncomplicated; Z90.49 Acquired absence of other specified parts of digestive tract
CPT/HCPCS: 36415; 80053; 82378; 85025; 99214

== ENCOUNTER → 2024-09-07 08:01 | Outpatient (BNVA) | payer MEDICARE, MEDICAID, SELFPAY | PROVIDERS: PCP Family Medicine; Visit Provider Nurse Practitioner Family | DX: L21.8 Other seborrheic dermatitis (principal); L57.8 Other skin changes due to chronic exposure to nonionizing radiation; X32.XXXA Exposure to sunlight, initial encounter; L81.4 Other melanin hyperpigmentation; L73.8 Other specified follicular disorders; L82.1 Other seborrheic keratosis; Z08 Encounter for follow-up examination after completed treatment for malignant neoplasm; Z85.828 Personal history of other malignant neoplasm of skin | CPT/HCPCS: 99213 ==

== ENCOUNTER 2025-01-26 12:11 | Oncology outpatient (recurring) (ONCR) | payer MEDICARE, MEDICAID, SELFPAY ==
[2025-01-26 12:27] LABS: Hematocrit 46.3 % (37-53); Hemoglobin 15.70 g/dL (11.27-16.99); Mean Corpuscular HGB Conc 33.9 g/dL (30-55); Mean Corpuscular Hemoglobin 33.2 pg (27-33); Mean Corpuscular Volume 97.9 fl (82-101); Nucleated Red Blood Cells % 0 %; Platelet Count 237 10^3/cmm (157-399); Red Blood Count 4.73 10^6/uL (3.85-5.65); White Blood Count 11.81 10^3/uL (3.29-11.43)
[2025-01-26 12:52] LABS: Carcinoembryonic Antigen 2.3 ng/mL (0.0-4.7)
[2025-01-26 13:05] LABS: Alanine Aminotransferase 50 U/L (0-41); Albumin Level 4.2 g/dL (3.5-5.2); Alkaline Phosphatase 84 U/L (40-130); Anion Gap 18.0 (5-19); Aspartate Amino Transferase 33 U/L (0-40); Blood Urea Nitrogen 26 mg/dL (8-23); Calcium 9.4 mg/dL (8.5-10.5); Carbon Dioxide 27 mmol/L (22-29); Chloride 96 mmol/L (98-107); Creatinine Clr Calc Pharmacy 60.4094; Globulin 2.9 g/dL (1.3-4.6); Glucose 109 mg/dL (65-115); Osmolality Calculated 287 mOsm/kg (285-295); Potassium 5.0 mmol/L (3.5-5.1); Sodium 136 mmol/L (136-145); Total Protein 7.1 g/dL (6.6-8.7)
== END 2025-02-22 23:59 | disposition home or self-care (01) ==
PROVIDERS: PCP Family Medicine; Visit Provider Internal Medicine
DX: Z08 Encounter for follow-up examination after completed treatment for malignant neoplasm (principal); Z85.038 Personal history of other malignant neoplasm of large intestine; F17.210 Nicotine dependence, cigarettes, uncomplicated
CPT/HCPCS: 36415; 80053; 82378; 85025; 99213

== ENCOUNTER 2025-03-14 12:07 | Oncology outpatient (recurring) (ONCR) | payer MEDICARE, MEDICAID, SELFPAY ==
--- NOTE | 2025-03-14 12:30 | CTR_ITS ---
PROCEDURE INFORMATION: Exam: CT Chest With Contrast; Diagnostic Exam date and time: 03/14/2025 1:24 PM Age: 79 years old Clinical indication: Condition or disease; Other: Malignant neoplasm of descending colon, prior surgery; Surgery date: 6+ months; Surgery type: Colon, heart stents, gb TECHNIQUE: Imaging protocol: Diagnostic computed tomography of the chest with contrast. Radiation optimization: All CT scans at this facility use at least one of these dose optimization techniques: automated exposure control; mA and/or kV adjustment per patient size (includes targeted exams where dose is matched to clinical indication); or iterative reconstruction. Contrast material: OMNI 350; Contrast volume: 100 ml; Contrast route: INTRAVENOUS (IV); COMPARISON: CT chest abdpel w/*[id number] 01/02/2024 11:45 AM RADIATION DOSE METRICS: Total DLP (mGy-cm): 1130.28 FINDINGS: Lungs: No infiltrates or lobar consolidation. No suspiciuos pulmonary nodules or masses. Pleural spaces: No pleural effusions or pneumothorax. Heart: Heart size within normal limits. No pericardial effusions. Coronary arteries: No significant coronary artery calcifications. Lymph nodes: No significant mediastinal or hilar lymphadenopathy. Calcified mediastinal and hilar lymph nodes. Vasculature: Unremarkable. No aortic aneurysm. Bones/joints: Unremarkable. No acute fracture. Soft tissues: Unremarkable. Other findings: Calcified granulomas bilaterally. PROCEDURE INFORMATION: Exam: CT Abdomen And Pelvis With Contrast Exam date and time: 03/14/2025 1:24 PM Age: 79 years old Clinical indication: Condition or disease; Other: Malignant neoplasm of descending colon, prior surgery; Surgery date: 6+ months; Surgery type: Colon, heart stents, gb TECHNIQUE: Imaging protocol: Computed tomography of the abdomen and pelvis with contrast. Radiation optimization: All CT scans at this facility use at least one of these dose optimization techniques: automated exposure control; mA and/or kV adjustment per patient size (includes targeted exams where dose is matched to clinical indication); or iterative reconstruction. Contrast material: OMNI 350; Contrast volume: 100 ml; Contrast route: INTRAVENOUS (IV); COMPARISON: CT chest abdpel w/*[id number] 03/03/2023 9:58 AM RADIATION DOSE METRICS: Total DLP (mGy-cm): 1130.28 FINDINGS: Liver: Hepatic steatosis. No significant focal hepatic lesions. Gallbladder and biliary ducts: Surgically absent gallbladder. No significant biliary ductal dilatation. Pancreas: Atrophic pancreas which is otherwise unremarkable. Spleen: Calcified granulomas in the spleen which is otherwise unremarkable. Adrenal glands: Normal. No mass. Kidneys and ureters: Simple left renal cysts measuring 13 mm. No follow-up indicated. No suspicious renal lesions. No hydronephrosis or nephrolithiasis. No ureteral stones. Stomach and bowel: Postsurgical changes of partial sigmoid colon resection. No suspicious colonic lesions identified on CT. No evidence of bowel obstruction. Appendix: No evidence of appendicitis. Intraperitoneal space: No ascites or pneumoperitoneum. Vasculature: Atherosclerotic calcifications of the abdominal aorta without aneurysm. Lymph nodes: Unremarkable. No enlarged lymph nodes. Urinary bladder: Urinary bladder unremarkable. Reproductive: Nonspecific moderate to severe prostatic enlargement. Bones/joints: No significant focal osseous lesions. Stable bone island in the left humeral head measuring up to 13 mm. No fractures or malalignment. Moderate to advanced degenerative changes of the lumbar spine. Soft tissues: Unremarkable. CT/CT chest abdpel w/*[id number] IMPRESSION: 1. No acute findings in the chest. 2. No suspicious masses or lymphadenopathy. 3. Redemonstration of the calcified granulomas in both lungs and the calcified mediastinal and hilar lymph nodes consistent with sequelae of old granulomatous disease. IMPRESSION: 1. No acute findings in the abdomen or pelvis. 2. No suspicious masses or lymphadenopathy. 3. Nonspecific moderate to severe prostatic enlargement. 4. Postsurgical changes of partial sigmoid colon resection. No suspicious colonic lesions identified on CT. 5. Simple left renal cyst measuring 13 mm. No follow-up indicated. 6. Hepatic steatosis. COMMENTS: Consistent with the [employer]'s Incidental Findings Committee white paper (J Am Demi Radiol 2018): Any incidental renal lesion less than 1 cm or classified as too small to characterize, or any incidental cystic renal lesion characterized as simple-appearing, is likely benign. No follow-up imaging is recommended for these lesions per consensus recommendations based on imaging criteria.
[2025-03-14] MEDS: iohexol 350 mg/mL 500 mL Btl (per mL) PO (13:13)
[2025-03-14] MEDS: iohexol 350 mg/mL 500 mL Btl (per mL) IV (13:38)
== END 2025-03-25 23:59 | disposition home or self-care (01) ==
LOC: ONCMED 12:08
PROVIDERS: PCP Family Medicine; Visit Provider Internal Medicine
DX: C18.6 Malignant neoplasm of descending colon (principal); N40.0 Benign prostatic hyperplasia without lower urinary tract symptoms; Z98.890 Other specified postprocedural states; N28.1 Cyst of kidney, acquired; K76.0 Fatty (change of) liver, not elsewhere classified; I89.8 Other specified noninfective disorders of lymphatic vessels and lymph nodes; R93.89 Abnormal findings on diagnostic imaging of other specified body structures; Z90.49 Acquired absence of other specified parts of digestive tract; K86.89 Other specified diseases of pancreas; D73.89 Other diseases of spleen; I70.0 Atherosclerosis of aorta; R93.7 Abnormal findings on diagnostic imaging of other parts of musculoskeletal system; M47.9 Spondylosis, unspecified
CPT/HCPCS: 71260; 74177

== ENCOUNTER 2025-05-11 10:14 | Oncology outpatient (recurring) (ONCR) | payer MEDICARE, SELFPAY ==
[2025-05-11 10:40] LABS: Hematocrit 46.9 % (37-53); Hemoglobin 15.80 g/dL (11.27-16.99); Mean Corpuscular HGB Conc 33.7 g/dL (30-55); Mean Corpuscular Hemoglobin 33.1 pg (27-33); Mean Corpuscular Volume 98.1 fl (82-101); Nucleated Red Blood Cells % 0 %; Platelet Count 226 10^3/cmm (157-399); Red Blood Count 4.78 10^6/uL (3.85-5.65); White Blood Count 11.32 10^3/uL (3.29-11.43)
[2025-05-11 11:09] LABS: Carcinoembryonic Antigen 2.3 ng/mL (0.0-4.7)
[2025-05-11 11:20] LABS: Alanine Aminotransferase 36 U/L (0-41); Albumin Level 4.3 g/dL (3.5-5.2); Alkaline Phosphatase 104 U/L (40-130); Anion Gap 16.2 (5-19); Aspartate Amino Transferase 27 U/L (0-40); Blood Urea Nitrogen 18 mg/dL (8-23); Calcium 9.1 mg/dL (8.5-10.5); Carbon Dioxide 28 mmol/L (22-29); Chloride 96 mmol/L (98-107); Globulin 2.5 g/dL (1.3-4.6); Glucose 106 mg/dL (65-115); Osmolality Calculated 284 mOsm/kg (285-295); Potassium 4.2 mmol/L (3.5-5.1); Sodium 136 mmol/L (136-145); Total Protein 6.8 g/dL (6.6-8.7)
== END 2025-05-25 23:59 | disposition home or self-care (01) ==
PROVIDERS: PCP Family Medicine; Visit Provider Internal Medicine
DX: Z08 Encounter for follow-up examination after completed treatment for malignant neoplasm (principal); Z85.038 Personal history of other malignant neoplasm of large intestine; F17.210 Nicotine dependence, cigarettes, uncomplicated; Z90.49 Acquired absence of other specified parts of digestive tract; Z71.6 Tobacco abuse counseling
CPT/HCPCS: 80053; 82378; 85025; 99213